=== PATIENT | male | born 1980 | race Two or more races ===

== ENCOUNTER 2023-10-09 20:28 | Emergency (ER) | payer OTHER ==
[~2023-10-09] VITALS: Ht 180.3 cm; Wt 90.7 kg
[2023-10-09] MEDS ORDERED: KETOROLAC TROMETHAMINE 30 MG VIAL IM STA (21:36)
[2023-10-09 22:09] LABS: HEMATOCRIT 43.4 % (39.0-48.0); HEMOGLOBIN 14.8 g/dL (13-16.00); MEAN CELL VOLUME 89.5 fL (80.0-100.00); MEAN CORPUSCULAR HEMOGLOBIN 30.5 pg (27.00-32.0); PLATELET COUNT 236 K/uL (150-450); RED BLOOD COUNT 4.84 M/uL (4.00-6.00); RED CELL DISTRIBUTION WIDTH 12.6 % (11.5-14.5)
== END 2023-10-09 22:27 | disposition home or self-care (01) ==
LOC: ER 20:29
PROVIDERS: General Practice
DX: R51.9 Headache, unspecified (principal)

== ENCOUNTER 2025-04-29 11:40 | Emergency (ER) | payer OTHER ==
[~2025-04-29] VITALS: Ht 180.3 cm; Wt 81.6 kg
[2025-04-29] MEDS ORDERED: METHYLPREDNISOLONE SOD SUCC 125 MG VIAL ONE (13:22)
[2025-04-29] MEDS ORDERED: DIPHENHYDRAMINE HCL 50 MG/ML VIAL 1ML ONE (13:22)
[2025-04-29] MEDS ORDERED: FAMOTIDINE/PF 20 MG/2 ML VIAL ONE (13:23)
[2025-04-29] MEDS ORDERED: DIPHENHYDRAMINE HCL 50 MG/ML VIAL 1ML IV ONE (13:30)
[2025-04-29] MEDS ORDERED: FAMOTIDINE/PF 20 MG/2 ML VIAL IV ONE (13:30)
[2025-04-29] MEDS ORDERED: METHYLPREDNISOLONE SOD SUCC 125 MG VIAL IV ONE (13:30)
[2025-04-29 13:57] LABS: BASO % 0.3 % (0.1-1.2); EOS # 0.79 (0.04-0.54); EOS % 13.6 % (0.7-7.0); LYMPH # 1.00 (1.18-3.74); LYMPH % 17.2 % (19.3-53.1); MEAN PLATELET VOLUME 9.40 fl (9.4-12.4); MONO # 0.55 (0.24-0.82); MONO % 9.5 % (4.7-12.5); NEUT # 3.42 (1.56-6.13); NEUT % 59.1 % (34.0-71.1); RED CELL DISTRIBUTION WIDTH 11.4 % (11.6-14.4)
== END 2025-04-29 17:12 | disposition home or self-care (01) ==
LOC: ER 11:40
DX: T78.40XA Allergy, unspecified, initial encounter (principal); R21 Rash and other nonspecific skin eruption